=== PATIENT | male | born 1980 | race Caucasian/White ===

== ENCOUNTER → 2018-01-02 | Outpatient (CLI) | payer OTHER ==
--- NOTE | 2018-01-02 17:11 | XR ---
EXAMINATION TYPE: XR hand complete LT DATE OF EXAM: 01/02/2018 COMPARISON: NONE HISTORY: Contusion TECHNIQUE: 3 views FINDINGS: There is nondisplaced fracture tuft of the distal phalanx of the index finger left hand. Me tacarpals are intact. Joint spaces are fairly normal. IMPRESSION: Tuft fracture as above.
== END | disposition home or self-care (01) ==
LOC: RADXRMAIN 16:45
PROVIDERS: ATTEND Emergency Medicine
DX: S62.661A Nondisplaced fracture of distal phalanx of left index finger, initial encounter for closed fracture (principal)

== ENCOUNTER 2018-07-29 08:09 | Day surgery (SDC) | payer MEDICAID, OTHER ==
[2018-07-24 08:55] VITALS: BMI 29.1
[~2018-07-29 08:09] MED LIST: DEXAMETHASONE SOD PHOSPHATE 10 MG/ML 1 ML VIAL IV ONE; HYDROmorphone 0.5 MG/0.5 ML SYRINGE IVP PRN; LACTATED RINGERS 1,000 ML IV SCH; MIDAZOLAM (PF) 2 MG/2 ML VIAL IV PRN; ONDANSETRON 4 MG/2 ML VIAL IVP ONE; Pre Op ABX Message 1 EACH MISC MISCELLANE ONE; SCOPOLAMINE 1.5MG/72HR PATCH TRANSDERM ONE
[2018-07-29] MEDS ORDERED: LIDOCAINE 1% 20 ML VIAL (10MG/ML) FOR IV START INTRADERMA ONE (08:25)
[2018-07-29 08:26] VITALS: TEMP 98
[2018-07-29] MEDS ORDERED: LIDOCAINE 2% INJ 20 MG/ML SQ ONE (09:40)
[2018-07-29] MEDS ORDERED: BUPIVACAINE (PF) 0.5% 30 ML VIAL SQ ONE (09:40)
[2018-07-29 10:04] VITALS: BP 137/98; PULSE 74; RESP 16
--- NOTE | 2018-07-29 12:56 | OP ---
OPERATIVE REPORT SURGERY DATE: 07/29/2018 SURGEON: Margarito Pineda DO PREOPERATIVE DIAGNOSIS: Right trigger thumb. POSTOPERATIVE DIAGNOSIS: Right trigger thumb PROCEDURE: Right trigger thumb release. DESCRIPTION OF PROCEDURE: The patient was taken to the operative suite . This procedure was done under straight local anesthetic, 5 mL of combination Xylocaine and Marcaine both without Epinephrine were injected in the preop holding area using sterile technique. The hand was then prepped and draped in the usual manner. The hand was elevated, exsanguinated. The cuff was inflated 250 mmHg. A transverse incision was made in the proximal skin crease of the thumb. Blunt dissection was taken through the subcutaneous tissue to identify the neurovascular bundles. They were kept in view and gently retracted out of harm?s way while a longitudinal release of the A1 coleman was performed. The flexor pollicis longus was examined and slight swelling was noted but the tendon was intact. The tendon was gently retracted from the wound to ensure no adhesion. The wound was then thoroughly irrigated, tourniquet released. Hemostasis was acquired and the skin was closed with 5-0 nylon suture. Soft bulky dressing applied. The patient was taken to the recovery room in satisfactory condition. MMODL / IJN: [id number] /
== END 2018-07-29 10:13 | disposition home or self-care (01) ==
LOC: OR 08:09
PROVIDERS: ATTEND Orthopaedic Surgery Hand Surgery
DX: M65.311 Trigger thumb, right thumb (principal); Z87.891 Personal history of nicotine dependence; Z79.899 Other long term (current) drug therapy
CPT/HCPCS: 26055; J2001